=== PATIENT | female | born 1960 | race Caucasian/White ===

== ENCOUNTER → 2018-09-18 13:58 | Outpatient (CLI) | payer BC, SELFPAY ==
[2018-09-18 14:48] LABS: Basophils % 0.5 % (0.1-2.0); Eosinophils # 0.3 K/mm3 (0.0-0.4); Eosinophils % 4.3 % (0.1-12.0); Hematocrit 29.1 % (37.0-47.0); Hemoglobin 9.4 g/dL (12.2-16.2); Lymphocytes # 1.1 K/mm3 (0.7-4.5); Lymphocytes % 18.5 % (10-50); Mean Corpuscular HGB Conc 32.1 g/dL (31.8-35.4); Mean Corpuscular Volume 93.5 fl (81-99); Mean Platelet Volume 8.1 fl (7.4-10.4); Monocytes # 0.3 K/mm3 (0.1-1.0); Monocytes % 4.9 % (1.7-9.3); Neutrophils # 4.1 K/mm3 (1.8-7.8); Neutrophils % 71.8 % (37.0-80.0); Platelet Count 200 K/mm3 (142-424); Red Blood Count 3.12 M/mm3 (4.20-5.40); Red Cell Distribution Width 12.8 % (11.5-17.5); White Blood Count 5.8 K/mm3 (4.8-10.8)
--- NOTE | 2018-09-18 14:49 | XR_ITS ---
XR chest 2V HISTORY: ITS.REASON: hoarseness ORDERING PHYSICIAN: Tiburcio Clements MD PATIENT AGE: 58 years COMPARISON: None available FINDINGS: The cardiomediastinal silhouette and pulmonary vascularity are within normal limits. The lungs are clear without infiltrates, suspicious nodules, or pleural effusions. There is a tiny noncalcified nodular lesion right upper lobe likely an evolving granuloma. There is minimal bilateral basilar atelectasis. There is orthopedic hardware in both humeral heads and humeral shafts. No acute bony abnormalities. IMPRESSION: Bilateral basilar atelectasis, tiny noncalcified nodule right upper lobe and suggest a follow-up chest film impression 6 months to evaluate for interval stability.
[2018-09-18 15:56] LABS: Alanine Aminotransferase 14 U/L (12-78); Albumin Level 3.4 gm/dL (3.4-5.0); Alkaline Phosphatase 69 U/L (46-116); Anion Gap 18.7 mEq/L (5-15); Aspartate Amino Transferase 15 U/L (15-37); Bilirubin,Direct 0.1 mg/dL (0.0-0.2); Bilirubin,Indirect 0.1 mg/dL (0.0-0.9); Bilirubin,Total 0.2 mg/dL (0.2-1.0); Blood Urea Nitrogen 58 mg/dL (7-18); Calcium 8.4 mg/dL (8.5-10.1); Carbon Dioxide 21 mmol/L (21.0-32.0); Chloride 100 mmol/L (98-107); Estimated Glomerular Filt Rate 11 ml/min (>60); Free T4 (Free Thyroxine) 0.91 ng/dl (0.76-1.46); GFR (African American) 14 ML/MIN (>60); Glucose 84 mg/dL (74-106); Potassium 4.7 mmoL/L (3.5-5.1); Sodium 135 mmol/L (136-145); Thyroid Stimulating Hormone 0.63 uIU/ml (0.358-3.740); Total Protein,Serum 6.8 gm/dL (6.4-8.2)
== END ==
PROVIDERS: PCP Family Medicine; Visit Provider Internal Medicine
DX: R06.00 Dyspnea, unspecified (principal); R49.0 Dysphonia
CPT/HCPCS: 71046; 80048; 80076; 84439; 84443; 85025